=== PATIENT | female | born 1950 | race Caucasian/White ===

== ENCOUNTER 2016-11-30 12:56 | Emergency (ER) | payer MEDICARE, BC ==
[2016-11-30 13:06] VITALS: BP 137/87
--- NOTE | 2016-11-30 13:29 | EDM.PDOC ---
ED HPI Skin/Rash - General Chief Complaint: Laceration Stated Complaint: LACERATION TO LEFT EYEBROW Time Seen by Provider: 11/30/16 13:19 - History of Present Illness INITIAL COMMENTS - FREE TEXT/NARRATIVE: 66-year-old female presents emergency room with a laceration above her left eye. This occurred shortly before arrival the patient lost her footing and stumbled forward landing on her face. She had no loss of consciousness however she had some bleeding above her eye. She was in a grocery store when this occurred and she received first aid they recommended that she might need stitches. Patient was able to drive herself to the emergency room without difficulty. Patient has been having a problem with her lower extremities as far as weakness and balance problems she recently had an EEG. 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 - Related Data Allergies Allergy/AdvReac Type Severity Reaction Status Date / Time meperidine [From Demerol] Allergy Agitation Verified 11/30/16 13:07 morphine Allergy Nausea and Verified 11/30/16 13:07 Vomiting Penicillins Allergy Other Verified 11/30/16 13:07 Home Meds: Ambulatory Orders Medication Instructions Recorded Confirmed Aspirin 81 mg PO DAILY 11/30/16 11/30/16 Ca/D3/Mag Ox/Zinc/Kayaking Instructor/Pavan/Bor 1 tab PO DAILY 11/30/16 11/30/16 [Gnp Calcium 600+D+Minerals Tab] Cinnamon Bark [Cinnamon] 1,000 mg PO DAILY 11/30/16 11/30/16 Citalopram Hydrobromide [Celexa] 20 mg PO DAILY 11/30/16 11/30/16 Divalproex Sodium [Depakote ER] 500 mg PO BEDTIME 11/30/16 11/30/16 Ezetimibe [Zetia] 10 mg PO DAILY 11/30/16 11/30/16 Latanoprost [Xalatan 0.005% Ophth 1 drop EYEBOTH BEDTIME 11/30/16 11/30/16 Soln] Magnesium 500 mg PO DAILY 11/30/16 11/30/16 Melatonin 5 mg PO BEDTIME 11/30/16 11/30/16 Metoclopramide [Reglan] 10 mg PO DAILY PRN 11/30/16 11/30/16 Naproxen Sodium [Aleve] 440 mg PO DAILY PRN 11/30/16 11/30/16 Niacin [Niacin ER] 500 mg PO DAILY 11/30/16 11/30/16 Vitamin B Complex [B Complex] 1 tab PO DAILY 11/30/16 11/30/16 ZOLMitriptan [Zomig] 5 mg PO Q2H PRN 11/30/16 11/30/16 Zinc [Zinc Lozenge] 25 mg PO DAILY 11/30/16 11/30/16 traMADol [Ultram] 100 mg PO DAILY PRN 11/30/16 11/30/16 Past Medical History Neurological History: Reports: Migraines - Past Surgical History Musculoskeletal Surgical History: Reports: Joint replacement Social & Family History - Tobacco Use Smoking Status *Q: Never Smoker - Caffeine Use Caffeine Use: Reports: Coffee - Recreational Drug Use Recreational Drug Use: No ED ROS GENERAL - Review of Systems Review Of Systems: See Below Constitutional: Reports: no symptoms HEENT: Reports: No symptoms, Glasses. Denies: Ear pain, Eye pain, Rhinitis, Sinus problem, Throat pain, Throat swelling Respiratory: Reports: No Symptoms Cardiovascular: Reports: No symptoms GI/Abdominal: Reports: No symptoms Neurological: Reports: Gait Disturbance (She recently had an EEG to further evaluate this). Denies: Confusion, Dizziness, Headache, Numbness, Paresthesia, Seizure, Syncope Psychiatric: Reports: No symptoms ED EXAM, SKIN/RASH Exam: See Below Exam Limited By: No limitations General Appearance: alert, no apparent distress Eye Exam: bilateral eye: EOMI, normal inspection, PERRL Ears: normal external exam, normal canal, hearing grossly normal, normal TMs Nose: normal inspection, normal mucosa, no blood Throat/Mouth: Normal inspection, Normal lips, Normal gums, Normal oropharynx, Normal voice, No airway compromise, Other (Dentures in place) Head: normocephalic, other (Patient has a laceration above her left eye at the superior orbital rim. No crepitation with palpation) Neck: normal inspection, supple, non-tender, full range of motion. No: lymphadenopathy (L), lymphadenopathy (R), tender lateral, tender midline, thyromegaly Respiratory/Chest: no respiratory distress, lungs clear, normal breath sounds Cardiovascular: regular rate, rhythm, no edema, no murmur Back Exam: normal inspection. No: CVA tenderness (L), CVA tenderness (R) Extremities: normal inspection, no pedal edema Neurological: alert, oriented, normal cognition, other (Cranial nerves II through XII grossly intact all muscle groups the upper 70s recall appropriate bilaterally the patient can stand without difficulty cerebellar testing is entirely within normal limits deep tendon reflexes are equal and appropriate at the brachial radialis and patella tendons bilaterally) Psychiatric: normal affect, normal mood Location, Skin: other (She has a 3 cm laceration following her superior left orbital rim) ED SKIN PROCEDURES - Laceration/Wound Repair Left Face Lac/wound length in cm: 3 Appearance: irregular, clean Distal NVT: neuro & vascular intact Anesthetic type: local Local anesthesia - Lidocaine (Xylocaine): 1% plain Local anesthetic volume: 2cc Skin prep: saline Exploration/Debridement/Repair: wound explored, in a bloodless field, explored to base, other (Bone margin at the superior orbital rim appears intact.) Closed with: sutures Suture size: 4-0 # of sutures: 9 Suture type: nylon, interrupted, simple Drain placement: No Tetanus status addressed: Yes (She is unsure of her last tetanus shot this was brought up to date the) Complications: No Course - Vital Signs Last Recorded V/S: Last Vital Signs Temp 36.8 C 11/30/16 13:04 Pulse 82 11/30/16 13:04 Resp 18 11/30/16 13:04 BP 137/87 11/30/16 13:04 Pulse Ox 97 11/30/16 13:04 - Orders/Labs/Meds Meds: Medications Discontinued Medications Generic Name Dose Route Start Last Admin Trade Name Rajeev PRN Reason Stop Dose Admin Lidocaine HCl 50 ml 11/30/16 13:37 Xylocaine 1% INJECT 11/30/16 13:38 ONETIME ONE Lidocaine HCl 50 ml 11/30/16 13:45 11/30/16 13:51 Xylocaine 1% INJECT 11/30/16 13:46 50 ml ONETIME ONE Administration - Re-Assessments/Exams Free Text/Narrative Re-Assessment/Exam: 11/30/16 14:49 Patient tolerated primary repair with a simple sutures. Prior to this done the wound was thoroughly explored through the incision the superior orbital rim was palpated no evidence of fracture. Departure - Departure Time of Disposition: 14:26 Disposition: Home, Self-Care 01 Clinical Impression: Facial laceration, Head injury Instructions: Head Injury, Adult, [id number], Facial Laceration, [id number] Referrals: PCP,Not In Area [Primary Care Provider] - Forms: ED Department Discharge Additional Instructions: Return to emergency room if any questions or problems. Suture removal in 7 days. Keep wound clean and dry for the first 24 hours after this she can let a little bit watery gently roll over the area for no more than a minute or 2 then gently dab dry. This evening have family awaking you every 2 hours for the next 12 hours to insure normal behavior and activity if any concerns arise seek medical care.
[2016-11-30] MEDS ORDERED: Lidocaine 1% 10 ML MDV INJECT ONE (13:37)
[2016-11-30] MEDS ORDERED: Lidocaine 1% 50 ML MDV INJECT ONE (13:45)
== END 2016-11-30 14:36 | disposition home or self-care (01) ==
LOC: JD.ED 12:56
DX: S01.112A Laceration without foreign body of left eyelid and periocular area, initial encounter (principal); S09.90XA Unspecified injury of head, initial encounter; G43.909 Migraine, unspecified, not intractable, without status migrainosus; Z88.8 Allergy status to other drugs, medicaments and biological substances; Z88.0 Allergy status to penicillin; Z79.82 Long term (current) use of aspirin; W22.8XXA Striking against or struck by other objects, initial encounter
CPT/HCPCS: 12013; 99282-25; 99283-25